=== PATIENT | female | born 1995 | race Caucasian/White ===

== ENCOUNTER 2019-05-11 07:11 | Emergency (ER) | payer MEDICAID ==
--- NOTE | 2019-05-11 07:40 | EDM.PDOC ---
ED HPI GENERAL MEDICAL PROBLEM - General Chief Complaint: ENT Problem Stated Complaint: RT EAR PAIN Time Seen by Provider: 05/11/19 07:29 Source of Information: Reports: Patient History Limitations: Reports: No Limitations - History of Present Illness INITIAL COMMENTS - FREE TEXT/NARRATIVE: 24-year-old female with right ear discomfort, decreased hearing for the past 24- 36 hours. She's had a cold over the past several days. No significant pain. Denies nausea or vomiting or dizziness. Onset: Gradual Duration: Day(s): (2 days) Location: Reports: Other (Right ear) Associated Symptoms: Denies: Chest Pain, Cough, Nausea/Vomiting, Shortness of Breath Right Ear Pain Score (Numeric/FACES): 3 - Related Data Allergies Allergy/AdvReac Type Severity Reaction Status Date / Time No Known Allergies Allergy Verified 05/11/19 07:25 Home Meds: Home Meds NK [No Known Home Meds] 05/11/19 [History] Past Medical History - Past Health History Medical/Surgical History: Denies Medical/Surgical History Social & Family History - Tobacco Use Smoking Status *Q: Current Every Day Smoker Years of Tobacco use: 6 Packs/Tins Daily: 1 - Caffeine Use Caffeine Use: Reports: Soda - Recreational Drug Use Recreational Drug Use: No ED ROS ENT - Review of Systems Review Of Systems: See Below Constitutional: Denies: Fever, Chills HEENT: Reports: Rhinitis (Some mild rhinitis which is improving), Other (Right ear pressure, hearing loss no drainage) Respiratory: Denies: Shortness of Breath, Cough Cardiovascular: Denies: Chest Pain GI/Abdominal: Reports: No Symptoms Skin: Reports: No Symptoms Neurological: Denies: Headache ED EXAM, ENT - Physical Exam Exam: See Below Exam Limited By: No Limitations General Appearance: Alert, No Apparent Distress Ears: Other (The left ear is normal, the right ear has some discomfort with movement of the ear helix. There is a small amount of wax in the canal but the tympanic membrane is reddened and slightly bulging.) Head: Atraumatic Respiratory/Chest: No Respiratory Distress, Lungs Clear Neurological: Alert, Oriented Psychiatric: Normal Affect, Normal Mood Skin: Warm, Dry Course - Vital Signs Last Recorded V/S: Last Vital Signs Temp 96.6 F 05/11/19 07:24 Pulse 118 H 05/11/19 07:24 Resp 17 05/11/19 07:24 BP 135/92 H 05/11/19 07:24 Pulse Ox 98 05/11/19 07:24 - Re-Assessments/Exams Free Text/Narrative Re-Assessment/Exam: 05/11/19 07:38 She'll be placed on amoxicillin 500 mg 3 times a day for at least 7 days. Recheck in 3-4 days if not improving satisfactorily. After the infection has settled down she can get the wax removed which may improve her hearing as well. Departure - Departure Time of Disposition: 07:42 Disposition: Home, Self-Care 01 Condition: Good Clinical Impression: Otitis media Qualifiers: Otitis media type: suppurative Chronicity: acute Laterality: right Recurrence: non-recurrent Spontaneous tympanic membrane rupture: without spontaneous rupture Qualified Code(s): H66.001 - Acute suppurative otitis media without spontaneous rupture of ear drum, right ear - Discharge Information Instructions: Otitis Media, Adult, [id number] Referrals: PCP,None [Primary Care Provider] - Forms: ED Department Discharge Care Plan Goals: Take antibiotic 3 times a day for at least 7 days, recheck in 3-4 days if not improving satisfactorily. Consider rechecking in 1-2 weeks to clean any remaining wax to improve your hearing. Ibuprofen or naproxen works well for ear inflammation if pain worsens.
== END 2019-05-11 07:43 | disposition home or self-care (01) ==
LOC: JP.ED 07:11
DX: H66.001 Acute suppurative otitis media without spontaneous rupture of ear drum, right ear (principal); F17.210 Nicotine dependence, cigarettes, uncomplicated
CPT/HCPCS: 99282